=== PATIENT | male | born 1995 | race Asian ===

== ENCOUNTER 2017-05-20 00:52 | Emergency (ER) | payer OTHER ==
[~2017-05-20] VITALS: Ht 162.6 cm; Wt 60.8 kg
[2017-05-20 01:02] VITALS: Ht 162.6 cm; Wt 60.8 kg
[2017-05-20 04:51] VITALS: BP 113/70
== END 2017-05-20 04:51 | disposition home or self-care (01) ==
LOC: ED 00:52
DX: S02.5XXA Fracture of tooth (traumatic), initial encounter for closed fracture (principal); S01.511A Laceration without foreign body of lip, initial encounter; S01.81XA Laceration without foreign body of other part of head, initial encounter; W01.0XXA Fall on same level from slipping, tripping and stumbling without subsequent striking against object, initial encounter; Y93.89 Activity, other specified; Y92.89 Other specified places as the place of occurrence of the external cause; Y99.8 Other external cause status
CPT/HCPCS: 90715; J2001